=== PATIENT | female | born 1975 | race Caucasian/White ===

== ENCOUNTER 2018-07-29 07:33 | Outpatient (CLI) | payer OTHER ==
[2018-07-29 12:44] LABS: EOSINOPHILS # (AUTO) 0.1 10^3/uL (0.0-0.7); EOSINOPHILS % (AUTO) 1.9 %; HGB - HEMOGLOBIN 11.2 g/dL (12.0-16.0); LYMPHOCYTES # (AUTO) 1.1 10^3/uL (1.5-3.5); LYMPHOCYTES % (AUTO) 24.7 %; MEAN CORPUSCULAR HEMOGLOBIN 25.6 pg (27.0-31.0); MEAN CORPUSCULAR HGB CONC 32.2 g/dL (32.0-36.0); MEAN CORPUSCULAR VOLUME 79.5 fL (81.0-99.0); MEAN PLATELET VOLUME 9.2 fL (7.9-10.8); MONOCYTES # (AUTO) 0.4 10^3/uL (0.0-1.0); MONOCYTES % (AUTO) 9.2 %; NEUTROPHILS # (AUTO) 2.8 10^3/uL (1.5-6.6); NEUTROPHILS % (AUTO) 63.2 %; PLT - PLATELET COUNT 259 10^3/uL (130-450); RED BLOOD COUNT 4.38 10^6/uL (4.20-5.40); WHITE BLOOD COUNT 4.5 x10^3/uL (4.8-10.8)
[2018-07-29 13:31] LABS: % IRON SATURATION 21 % (20-50); ALBUMIN 3.8 g/dL (3.2-5.5); ALBUMIN/GLOBULIN RATIO 1.3 (1.0-2.2); ALKALINE PHOSPHATASE 58 IU/L (42-121); ALT ALANINE AMINOTRANSFERASE 11 IU/L (10-60); AST ASPARTATE AMINOTRANSFERASE 15 IU/L (10-42); BILIRUBIN,TOTAL 0.6 mg/dL (0.2-1.0); BUN - BLOOD UREA NITROGEN 11 mg/dL (6-20); CARBON DIOXIDE - CO2 22 mmol/L (21-32); CHLORIDE 107 mmol/L (101-111); CHOL/HDL RATIO 3.3 (<4.4); CHOLESTEROL 245 mg/dL; CREATININE 0.6 mg/dL (0.4-1.0); GFR - MDRD 109 (>89); GLUCOSE 103 mg/dL (70-100); HDL CHOLESTEROL 74 mg/dL; IRON 77 ug/dL (28-170); LDL CHOLESTEROL,CALCULATED 155 mg/dL; LDL/HDL RATIO 2.1 (<4.4); SODIUM 137 mmol/L (135-145); TOTAL IRON BINDING CAPACITY 375 ug/dL (250-450); TOTAL PROTEIN 6.8 g/dL (6.7-8.2); TRANSFERRIN 268 mg/dL (192-382); VLDL CHOLESTEROL 16 mg/dL
== END 2018-07-29 07:34 | disposition home or self-care (01) ==
LOC: LAB.WCP 07:33
PROVIDERS: ATTEND Family Medicine
DX: R20.0 Anesthesia of skin (principal); M54.12 Radiculopathy, cervical region; D50.9 Iron deficiency anemia, unspecified; E78.5 Hyperlipidemia, unspecified
CPT/HCPCS: 36415; 80053; 80061; 83540; 83721; 84466; 85025

== ENCOUNTER 2019-03-27 10:03 | Outpatient (CLI) | payer OTHER ==
[2019-03-27 10:32] LABS: BASOPHILS % (AUTO) 0.7 %; EOSINOPHILS # (AUTO) 0.1 10^3/uL (0.0-0.7); EOSINOPHILS % (AUTO) 1.7 %; HGB - HEMOGLOBIN 8.6 g/dL (12.0-16.0); LYMPHOCYTES # (AUTO) 1.2 10^3/uL (1.5-3.5); LYMPHOCYTES % (AUTO) 20.9 %; MEAN CORPUSCULAR HEMOGLOBIN 20.6 pg (27.0-31.0); MEAN CORPUSCULAR HGB CONC 28.4 g/dL (32.0-36.0); MEAN CORPUSCULAR VOLUME 72.5 fL (81.0-99.0); MEAN PLATELET VOLUME 9.5 fL (7.9-10.8); MONOCYTES # (AUTO) 0.5 10^3/uL (0.0-1.0); MONOCYTES % (AUTO) 8.4 %; PLT - PLATELET COUNT 321 10^3/uL (130-450); RED BLOOD COUNT 4.18 10^6/uL (4.20-5.40); RED CELL DISTRIBUTION WIDTH 18.2 % (12.0-15.0); WHITE BLOOD COUNT 5.9 x10^3/uL (4.8-10.8)
[2019-03-27 11:09] LABS: ALBUMIN 3.9 g/dL (3.2-5.5); ALBUMIN/GLOBULIN RATIO 1.1 (1.0-2.2); BILIRUBIN,TOTAL 0.3 mg/dL (0.2-1.0); CREATININE 0.7 mg/dL (0.4-1.0); TOTAL PROTEIN 7.4 g/dL (6.7-8.2)
== END 2019-03-27 10:04 | disposition home or self-care (01) ==
LOC: LAB 10:03
PROVIDERS: ATTEND Registered Nurse
DX: D50.9 Iron deficiency anemia, unspecified (principal)
CPT/HCPCS: 36415; 80053; 83540; 84466; 85025

== ENCOUNTER 2019-05-05 08:12 | Outpatient (CLI) | payer OTHER ==
--- NOTE | 2019-05-12 15:22 | Mammography Report ---
Reason: ROUTINE MAMMO Procedure Date: 05/05/2019 Accession Number: [id number] / [id number] Procedure: SOURAV - Screening Mammo w/Abiodun CPT Code: Final Report FULL RESULT: EXAM: Screening Mammo w/Abiodun DATE: 05/05/2019 8:59 AM CLINICAL HISTORY: Screening encounter. History of late childbearing. Baseline screening. TECHNIQUE: (B) - Bilateral CC, laterally exaggerated CC, MLO views were obtained. COMPARISON: None PARENCHYMAL PATTERN: (D) - The breast(s) demonstrate(s) heterogeneously dense fibroglandular parenchyma. FINDINGS: In the left breast 2-3 o'clock axis IV.5 cm from the nipple is a reniform shaped nodule with suggestion of fatty hilum as seen mammographically and tomographically on MLO 3-D image 10 and CC 3-D image 28 which is suggestive of a typically benign intramammary lymph node. The finding should be characterized by ultrasound for confirmation. There are no suspicious masses, calcifications, or areas of distortion in the right breast. IMPRESSION: Incomplete examination. BI-RADS category 0. RECOMMENDATION: (ADDUS) - Targeted ultrasound recommended. Left breast. BI-RADS CATEGORY: (0) - Incomplete Examination - need additional evaluation. STANDARD QUALIFYING STATEMENTS: 1. This examination was not reviewed with the aid of Computer-Aided Detection (CAD). 2. A negative or benign imaging report should not preclude biopsy if clinically suspicious findings are present. 3. Dense breasts may obscure an underlying neoplasm. 4. This examination was reviewed with the aid of 3D breast imaging (tomosynthesis).
== END 2019-05-05 08:13 | disposition home or self-care (01) ==
LOC: DI 08:12
PROVIDERS: ATTEND Registered Nurse
DX: Z12.31 Encounter for screening mammogram for malignant neoplasm of breast (principal); R92.8 Other abnormal and inconclusive findings on diagnostic imaging of breast
CPT/HCPCS: 77063; 77067

== ENCOUNTER 2019-05-18 13:32 | Outpatient (CLI) | payer OTHER ==
--- NOTE | 2019-05-18 15:28 | Ultrasound Report ---
Reason: ABN MAMMO-LT SPEC VIEW US Procedure Date: 05/18/2019 Accession Number: [id number] / [id number] Procedure: US - Breast Unilateral Limited CPT Code: Final Report FULL RESULT: EXAM: Breast Unilateral Limited DATE: 05/18/2019 3:13 PM CLINICAL HISTORY: ABN MAMMO-LT SPEC VIEW US COMPARISON: 05/12/2019. TECHNIQUE: Targeted ultrasound was performed of the left breast in the area of clinical concern at 2-3 o'clock and 4.5 cm distance from the nipple. Color Doppler was employed as appropriate. FINDINGS: The mammographic finding corresponds to a wider than tall typically benign appearing lymph node which measures up to 1.6 x 0.4 x 1.5 cm with preserved fatty hilum and no abnormal vascularity by limited color Doppler at the 2:00 position 5 cm from the nipple. Incidentally noted are simple cysts without demonstrable soft tissue component which are wider than tall and measure up to 1 cm as seen 1 cm from the nipple along the 2:00 axis, increased through transmission and no vascularity by color Doppler, typically benign. Additionally, a probably benign well-circumscribed wider than tall hypoechoic mass with increased through transmission is seen 1 cm from the nipple at the 2:00 axis which measures 1.0 x 0.7 x 0.6 cm and demonstrates questionable vascularity along its margin by color Doppler, appearance favors a small fibroadenoma versus complex cyst. This should be followed for stability by ultrasound. IMPRESSION: Probable benign findings RECOMMENDATION: Recommend diagnostic left breast ultrasound in 6 months. 2:00 axis I cm from the nipple. BIRADS CATEGORY 3 RADIA
== END 2019-05-18 13:33 | disposition home or self-care (01) ==
LOC: DI 13:32
PROVIDERS: ATTEND Registered Nurse
DX: N63.21 Unspecified lump in the left breast, upper outer quadrant (principal)
CPT/HCPCS: 76642

== ENCOUNTER 2019-11-13 07:22 | Outpatient (CLI) | payer OTHER ==
[2019-11-13 08:00] LABS: ALBUMIN/GLOBULIN RATIO 1.1 (1.0-2.2); ALKALINE PHOSPHATASE 78 IU/L (42-121); ALT ALANINE AMINOTRANSFERASE 11 IU/L (10-60); AST ASPARTATE AMINOTRANSFERASE 14 IU/L (10-42); BILIRUBIN,TOTAL 0.3 mg/dL (0.2-1.0); BUN - BLOOD UREA NITROGEN 13 mg/dL (6-20); CALCIUM 8.7 mg/dL (8.5-10.3); CARBON DIOXIDE - CO2 22 mmol/L (21-32); CHLORIDE 102 mmol/L (101-111); CHOL/HDL RATIO 3.4 (<4.4); CHOLESTEROL 227 mg/dL; CREATININE 0.7 mg/dL (0.4-1.0); GLUCOSE 107 mg/dL (70-100); HDL CHOLESTEROL 66 mg/dL; LDL CHOLESTEROL,CALCULATED 151 mg/dL; LDL/HDL RATIO 2.3 (<4.4); SODIUM 135 mmol/L (135-145); TOTAL PROTEIN 7.5 g/dL (6.7-8.2); VLDL CHOLESTEROL 10 mg/dL
[2019-11-13 08:13] LABS: FREE T3 3.01 pg/mL (2.5-3.9)
[2019-11-13 08:14] LABS: FREE T4 (FREE THYROXINE) 0.89 ng/dL (0.58-1.64)
== END 2019-11-13 07:23 | disposition home or self-care (01) ==
LOC: LAB 07:22
PROVIDERS: ATTEND Family Medicine
DX: E78.5 Hyperlipidemia, unspecified (principal); D50.9 Iron deficiency anemia, unspecified; K90.41 Non-celiac gluten sensitivity
CPT/HCPCS: 36415; 80053; 80061; 81599; 83516; 83721; 84439; 84443; 84481

== ENCOUNTER 2020-04-04 09:53 | Outpatient (CLI) | payer OTHER ==
--- NOTE | 2020-04-05 09:46 | Mammography Report ---
BILATERAL DIGITAL DIAGNOSTIC MAMMOGRAM 3D/2D: 04/04/2020 CLINICAL: Additional evaluation requested from prior study. Comparison is made to exams dated: 05/18/2019 ultrasound and 05/05/2019 mammogram - [facility]. The tissue of both breasts is heterogeneously dense. This may lower the sensitivity of ma mmography. There is an oval equal density focal asymmetry with an obscured and circumscribed margin in the left breast at 2 o'clock middle depth. This likely correlates with prior ultrasound findings. There also is an oval low density mass with an obscured and circumscribed margin in the left breast a t 11 o'clock posterior depth. No other significant masses, calcifications, or other findings are seen in either breast. IMPRESSION: INCOMPLETE: NEEDS ADDITIONAL IMAGING EVALUATION The oval equal density focal asymmetry in the left breast at 2 o'clock middle depth is indeterminate. An ultrasound is recommended. The oval low density mass in the left breast at 11 o'clock posterior depth is indeterminate. An ultr asound is recommended. Ultrasound will be performed immediately following the current exam. This exam was interpreted at Station ID: [id number]. NOTE: For mammograms, a report in lay terms will be sent to the patient. Approximately 15% of breast malignancies will not be visualized mammographically. In the management of a palpable breast mass, a negative mammogram must not discourage biopsy of a clinically suspicious lesion. Electronically Signed By: Simone Lozano M.D. ddp/:04/04/2020 11:30:34 ACR BI-RADS Category 0: Incomplete 3340F PARENCHYMAL PATTERN: (D) - The breast(s) demonstrate(s) heterogeneously dense fibroglandular parenchy ma. BI-RADS CATEGORY: (0) - 0 Ultrasound [id number] Immediate follow-up LATERALITY: (B)
--- NOTE | 2020-04-05 09:46 | Ultrasound Report ---
LIMITED ULTRASOUND OF LEFT BREAST: 04/04/2020 CLINICAL: Patient returns for short term follow-up of a probably benign mass in the left breast. Lindsey ent returns for additional imaging over a suspected mass in the left breast. Comparison is made to exams dated: 04/04/2020 mammogram, 05/18/2019 ultrasound, and 05/05/2019 mammogram - [facility]. Color flow and real-time ultrasound of the left breast 2 o'clock and 11 o'clock regions were performe d on the areas of interest. There is a 1 cm x 0.8 cm x 1 cm oval cyst in the left breast at 2 o'clock anterior depth. This oval cyst is anechoic with a well-defined boundary and posterior acoustic enhancement. This appears stable in size compared to the prior study with decrease in internal echoes. This correlates with mammograp hy findings. Color flow imaging demonstrates that there is no vascularity present. There also is a stable benign 0.8 cm x 0.7 cm x 0.7 cm oval cyst in the left breast at 2 o'clock midd le depth. This oval cyst is anechoic with a well-defined boundary and posterior acoustic enhancement . Color flow imaging demonstrates that there is no vascularity present. Additionally, there is a benign 0.8 cm x 0.4 cm x 0.7 cm oval cyst in the left breast at 11 o'clock m iddle depth. This oval cyst is anechoic with a well-defined boundary and posterior acoustic enhancem ent. This correlates with mammography findings. Color flow imaging demonstrates that there is no va scularity present. In addition, there is a benign 1 cm x 0.3 cm x 0.8 cm oval normal lymph node in the left breast at 2 o'clock posterior depth. This oval normal lymph node is of mixed echogenicity with fatty hilum. Thi s abnormality is not significantly changed. Color flow imaging demonstrates that there is no increas e in vascularity. IMPRESSION: BENIGN There is no sonographic evidence of malignancy. The 1 cm x 0.8 cm x 1 cm oval cyst in the left breast at 2 o'clock anterior depth is stable in size a nd demonstrates decreased internal echoes consistent with a simple cyst and is benign. The stable 0.8 cm x 0.7 cm x 0.7 cm oval cyst in the left breast at 2 o'clock middle depth is consist ent with a simple cyst and is benign. The 0.8 cm x 0.4 cm x 0.7 cm oval cyst in the left breast at 11 o'clock middle depth corresponding to the new finding on mammography is consistent with a simple cyst and is benign. The 1 cm x 0.3 cm x 0.8 cm oval normal lymph node in the left breast at 2 o'clock posterior depth is consistent with a lymph node and is benign. A 1 year screening mammogram is recommended. This exam was interpreted at Station ID: [id number]. Electronically Signed By: Simone Lozano M.D. ddp/:04/04/2020 12:50:31 Ultrasound BI-RADS: 2 Benign BI-RADS CATEGORY: (2) - 2 RECOMMENDATION: (ANNUAL) - Recommend routine annual screening mammography. [id number] 1 year screening LATERALITY: (B)
== END 2020-04-04 09:54 | disposition home or self-care (01) ==
LOC: DI 09:53
PROVIDERS: ATTEND Registered Nurse
DX: N60.12 Diffuse cystic mastopathy of left breast (principal)

== ENCOUNTER 2022-06-06 14:06 | Outpatient (CLI) | payer OTHER ==
--- NOTE | 2022-06-07 10:41 | Mammography Report ---
BILATERAL DIGITAL SCREENING MAMMOGRAM 3D/2D: 06/06/2022 CLINICAL: Routine screening. Comparison is made to exams dated: 04/04/2020 mammogram and 05/05/2019 mammogram - [facility]. Both breasts are heterogeneously dense, which may obscure small masses (category c / 51-75% glandular tissue). No significant masses, calcifications, or other findings are seen in either breast. There has been no significant interval change. IMPRESSION: NEGATIVE There is no mammographic evidence of malignancy. A 1 year screening mammogram is recommended. Based on the Tyrer Cuzick model (a risk assessment model) the patients lifetime risk is 14.3% and he r 10 year risk is 2.9%. According to the ACR, ACS, and NCCN guidelines, an annual breast MRI exam teresa ng with mammogram is recommended if the patients lifetime risk is 20% or greater. This exam was interpreted at Station ID: [id number]. NOTE: For mammograms, a report in lay terms will be sent to the patient. Approximately 15% of breast malignancies will not be visualized mammographically. In the management of a palpable breast mass, a negative mammogram must not discourage biopsy of a clinically suspicious lesion. Electronically Signed By: Escobar burns/tha:06/06/2022 16:26:58 letter sent: No_Letter ACR BI-RADS Category 1: Negative 3341F PARENCHYMAL PATTERN: (D) - The breast(s) demonstrate(s) heterogeneously dense fibroglandular boogie andrew. BI-RADS CATEGORY: (1) - 1 Mammogram [id number] 1 year screening LATERALITY: (B)
== END 2022-06-06 14:07 | disposition home or self-care (01) ==
LOC: DI 14:06
DX: Z12.31 Encounter for screening mammogram for malignant neoplasm of breast (principal)